=== PATIENT | female | born 1955 | race Caucasian/White ===

== ENCOUNTER → 2025-03-22 14:24 | Outpatient (REF) | payer OTHER, SELFPAY | LOC: RAD 14:24 | PROVIDERS: ATTENDING PHYSICIAN Otolaryngology; FAMILY PHYSICIAN Family Medicine | DX: K11.23 Chronic sialoadenitis (principal) | CPT/HCPCS: 70492; Q9967 ==

== ENCOUNTER → 2025-03-25 09:44 | Outpatient (REF) | payer OTHER, SELFPAY | LOC: RCS 09:44 | PROVIDERS: ATTENDING PHYSICIAN Internal Medicine Cardiovascular Disease; FAMILY PHYSICIAN Family Medicine | DX: R94.31 Abnormal electrocardiogram [ECG] [EKG] (principal); D50.8 Other iron deficiency anemias; G47.30 Sleep apnea, unspecified; E78.00 Pure hypercholesterolemia, unspecified | CPT/HCPCS: 93306 ==

== ENCOUNTER → 2025-04-07 08:39 | Outpatient (REF) | payer OTHER, SELFPAY | LOC: HWRAD 08:39 | PROVIDERS: ATTENDING PHYSICIAN Family Medicine; REFERRING PHYSICIAN Otolaryngology | DX: E04.1 Nontoxic single thyroid nodule (principal) | CPT/HCPCS: 76536 ==